=== PATIENT | female | born 1955 | race Caucasian/White ===

== ENCOUNTER 2017-12-16 07:13 | Day surgery (SDC) | payer OTHER ==
[2017-12-16] MEDS ORDERED: Lactated Ringer's 1,000 ML IV ONE (07:34)
[2017-12-16] MEDS ORDERED: Propofol 10 mg/ml Inj (20 ML) ONE (09:06)
[2017-12-16] MEDS ORDERED: Lidocaine 2% MPF (5 ml) Inj ONE (09:06)
[2017-12-16 09:41] VITALS: TEMP 98
[2017-12-16 09:47] VITALS: BP 105/65; PULSE 81; RESP 17; O2SAT 98
== END 2017-12-16 10:06 | disposition home or self-care (01) ==
LOC: H.ENDO 07:13
PROVIDERS: ATTEND Internal Medicine Gastroenterology
DX: K57.30 Diverticulosis of large intestine without perforation or abscess without bleeding (principal); M19.90 Unspecified osteoarthritis, unspecified site; E03.9 Hypothyroidism, unspecified; R06.83 Snoring; K64.8 Other hemorrhoids; R19.5 Other fecal abnormalities
CPT/HCPCS: 45378; J2704; J7120